=== PATIENT | male | born 1950 | race Caucasian/White ===

== ENCOUNTER 2019-01-04 09:13 | Emergency (ER) | payer MEDICARE, OTHER | END 2019-01-04 12:45 | disposition home or self-care (01) | LOC: FTE 09:13 | DX: S82.64XA Nondisplaced fracture of lateral malleolus of right fibula, initial encounter for closed fracture (principal); S62.336A Displaced fracture of neck of fifth metacarpal bone, right hand, initial encounter for closed fracture; W18.39XA Other fall on same level, initial encounter; Y92.9 Unspecified place or not applicable | CPT/HCPCS: 29125; 73110-RT; 73130-RT; 73590; 73610-RT; 99284-25 ==